=== PATIENT | male | born 2000 | race Hispanic/Latino ===

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

== ENCOUNTER 2020-02-21 02:35 | Emergency (ER) | payer OTHER ==
[2020-02-21] MEDS ORDERED: Ibuprofen 200 MG TAB ONE (03:10)
--- NOTE | 2020-02-21 07:12 | RAD ---
RIGHT HAND 3 VIEWS: Date: 02/21/2020 No fracture was seen. The carpal bones appear intact. A small bone island is presumed in the triquetr um. No acute traumatic changes were appreciated. IMPRESSION: No acute findings. POS: HOME
--- NOTE | 2020-02-21 07:13 | RAD ---
RIGHT WRIST 3 VIEWS: Date: 02/21/2020 The carpal bones all appear intact. A small bone island was suggested in the triquetrum. The distal r adius and ulna appear intact, as do the metacarpals. IMPRESSION: No acute findings. POS: HOME
== END 2020-02-21 03:10 | disposition home or self-care (01) ==
LOC: BURERS 02:35
DX: S63.91XA Sprain of unspecified part of right wrist and hand, initial encounter (principal); S63.501A Unspecified sprain of right wrist, initial encounter; W01.0XXA Fall on same level from slipping, tripping and stumbling without subsequent striking against object, initial encounter
CPT/HCPCS: 99283

== ENCOUNTER 2020-06-20 23:50 | Emergency (ER) | payer OTHER | END 2020-06-21 00:15 | disposition home or self-care (01) | LOC: BURERS 23:50 | DX: M54.5 Low back pain (principal); F17.290 Nicotine dependence, other tobacco product, uncomplicated | CPT/HCPCS: 99283 ==